=== PATIENT | female | born 1965 | race Caucasian/White ===

== ENCOUNTER 2024-10-01 10:00 | Day surgery (SDC) | payer OTHER, SELFPAY ==
[2024-10-01] VITALS (12 sets, daily range): BP systolic 110–154; BP diastolic 70–84; PULSE 50–71; RESP 12–16; TEMP 36.2–37.1; O2SAT 94–100; BMI 19.5
[2024-10-01] MEDS: SODIUM CHLORIDE 0.9 % (FLUSH) 10 ML SYRINGE IVF (10:45)
[2024-10-01] MEDS: LACTATED RINGERS 1000 ML 1,000 ML 100 ML IV (10:45)
[2024-10-01] MEDS: OXYMETAZOLINE 0.05% NASAL SPRAY 2 SPRAY NOSTRIL-B (11:01)
[2024-10-01] MEDS: MUPIROCIN 1 GM PACKET 1 APPLIC TOPICAL (11:55)
[2024-10-01] MEDS: BUPIVACAINE 0.5%/EPINEPHRINE 0.9 MG (30.9 ML) INJECTION (11:55)
[2024-10-01] MEDS: COCAINE HCL 4 % 4 ML SOLUTION NOSTRIL-B (11:55)
[2024-10-01] MEDS: AYR SALINE NASAL GEL 1 APPLIC NOSTRIL-B (11:56)
--- NOTE | 2024-10-01 12:01 | P.ENTPROC_ITS ---
Procedure Note Date of procedure: 10/01/24 Procedure: Preop diagnosis right middle turbinate vince bullosa, sinonasal headache, deviated septum, nasal obstruction, right inferior turbinate hypertrophy Postop diagnosis same Procedure nasal septoplasty, endoscopic partial resection right middle turbinate vince bullosa, submucous partial resection right inferior turbinate Under general endotracheal anesthesia patient was prepped draped usual fashion in the nose decongested injected. Fifteen blade was used to make an incision anterior to the area 3 septal deflection the mucosa overlying this was elevated on either side in deflection removed piece trimmed straightened and returned to intraseptal space. The flap was then put back down A stab incision was made in the anterior of the right inferior turbinate a tunnel created with a [place] dissector. Vince bone was outfractured and a conservative anterior submucous resection performed with Josefina forceps. The Coblation was used to cauterize intramurally along the inferior 10% and for hemostasis. The remainder procedure was done with the available assistance of a 0 degree endoscope. The vince bullosa was incised along its inferolateral aspect. Incision was completed with a turbinate scissors and in the vince bone crushed with the Breezy forceps. Merocel packing was placed over the skin flap on the left side and in the middle meatus on the right side but also abutting the septum. Patient procedure was taken recovery satisfactory condition. Blood loss was less than 20 mL. Surgeon: Jose Alfredo Alvarado MD
--- NOTE | 2024-10-01 12:11 | P.ANES_ITS ---
Anesthesia Charges Start Date/Time Anesthesia Start Date: 10/01/24 Anesthesia Start Time: 11:35 Stop Date/Time Anesthesia Stop Date: 10/01/24 Anesthesia Stop Time: 12:10 Coding CPT Codes CPT Codes: ANESTH NOSE/SINUS SURGERY - 73283 ([id number]) P1 - NORMAL HEALTHY PATIENT, QK - ELECTRIC WELL LOGGING OPERATOR 2-4 CNCRNT ANES PROC, QX - RETAIL CLIENT SOLUTIONS CONSULTANT SVGilberto W/ MED DIRECTION
--- NOTE | 2024-10-01 12:11 | W.ANESCHARGE ---
Anesthesia Charges Start Date/Time Anesthesia Start Date: 10/01/24 Anesthesia Start Time: 11:35 Stop Date/Time Anesthesia Stop Date: 10/01/24 Anesthesia Stop Time: 12:10 Coding CPT Codes CPT Codes: ANESTH NOSE/SINUS SURGERY - 89984 ([id number]) P1 - NORMAL HEALTHY PATIENT, QK - JEWEL GAUGER 2-4 CNCRNT ANES PROC, QX - RUG INSPECTOR SVGilberto W/ MED DIRECTION
--- NOTE | 2024-10-01 12:13 | P.ANES_ITS ---
Anesthesia Charges Start Date/Time Anesthesia Start Date: 10/01/24 Anesthesia Start Time: 11:35 Stop Date/Time Anesthesia Stop Date: 10/01/24 Anesthesia Stop Time: 12:10 Coding CPT Codes CPT Codes: ANESTH NOSE/SINUS SURGERY - 54926 ([id number]) P1 - NORMAL HEALTHY PATIENT, QK - RIVET PASSER 2-4 CNCRNT ANES PROC, QX - METAL LATHER SVGilberto W/ MED DIRECTION
--- NOTE | 2024-10-01 12:13 | W.ANESCHARGE ---
Anesthesia Charges Start Date/Time Anesthesia Start Date: 10/01/24 Anesthesia Start Time: 11:35 Stop Date/Time Anesthesia Stop Date: 10/01/24 Anesthesia Stop Time: 12:10 Coding CPT Codes CPT Codes: ANESTH NOSE/SINUS SURGERY - 70260 ([id number]) P1 - NORMAL HEALTHY PATIENT, QK - INTERVENTIONAL SALE CONSULTANT 2-4 CNCRNT ANES PROC, QX - ERP DEVELOPER SVGilberto W/ MED DIRECTION
--- NOTE | 2024-10-01 12:43 | SUR.PHASEI ---
patient met discharge criteria per anesthesia
[2024-10-01] MEDS: IBUPROFEN 200 MG TABLET PO (12:58)
== END 2024-10-01 13:39 | disposition home or self-care (01) ==
LOC: OR 10:04
PROVIDERS: Visit Provider Otolaryngology
PROC: (CPT 31231; principal; 2024-10-01 11:15)
DX: J34.2 Deviated nasal septum (principal); J34.3 Hypertrophy of nasal turbinates; R51.9 Headache, unspecified
CPT/HCPCS: 30520; 30140; 31240; 00160; A9270; J0330; J1100; J2250; J2405; J2704; J3010; J7120